=== PATIENT | male | born 1970 | race Caucasian/White ===

== ENCOUNTER 2021-10-05 16:28 | Emergency (ER) | payer BC ==
[~2021-10-05] VITALS: Ht 175.3 cm; Wt 104.3 kg
[~2021-10-05 16:28] MED LIST: ASPIR 8181 MG PO; MAGOX 400400 MG PO; PERCOCET 7.5-31 EACH PO; TIROSINT150 MCG PO; ZOFRAN ODT4 MG PO; ZYRTEC10 M5 PO
[2021-10-05] MEDS ORDERED: TOPROL XL25 MG PO (16:36)
[2021-10-05] MEDS ORDERED: COZAAR 25 MG TA25 M1 PO (16:36)
[2021-10-05] MEDS ORDERED: SYNTHROID75 MC1 PO (16:36)
[2021-10-05 17:05] LABS: INFLUENZA A ANTIGEN Negative (Negative); INFLUENZA B ANTIGEN Negative (Negative)
[2021-10-05] MEDS ORDERED: PREDNISONE 20 M20 MG PO (17:38)
[2021-10-05] MEDS ORDERED: ZPAK PO (17:38)
[2021-10-05 17:59] VITALS: BP 154/93
== END 2021-10-05 18:00 | disposition home or self-care (01) ==
LOC: M.ERS 16:28
PROVIDERS: Family Medicine
DX: B34.9 Viral infection, unspecified (principal); Z20.822 Contact with and (suspected) exposure to COVID-19; E03.9 Hypothyroidism, unspecified; Z79.899 Other long term (current) drug therapy; Z79.82 Long term (current) use of aspirin